=== PATIENT | female | born 1940 | race Hispanic/Latino ===

== ENCOUNTER 2016-07-25 17:28 | Inpatient (IN) | payer MEDICARE ==
[2016-07-25 17:28] VITALS: BMI 37.5
--- NOTE | 2016-07-25 18:48 | CT ---
EXAM: CT Right Lower Extremity Without Intravenous Contrast, Knee CLINICAL HISTORY: 76 years old, female; Pain; Knee; Right; Additional info: FX knee TECHNIQUE: Axial computed tomography images of the right knee without intravenous contrast. This CT exam was performed using one or more of the following dose reduction techniques: automated exposure control, adjustment of the mA and/or kV according to patient size, and/or use of iterative reconstruction technique. Coronal and sagittal reformatted images were created and reviewed. EXAM DATE/TIME: 07/25/2016 5:56 PM COMPARISON: There are no prior studies for comparison. FINDINGS: Bones/joints: Bony structures are diffusely osteopenic. There is a minimally comminuted oblique fracture through the medial condyle of the right femur. There is impaction at the fracture site. There is posterior and medial displacement of the distal fracture fragment.. Fracture line extends obliquely to the posterior aspect of the lateral condyle. There is no patellar fracture. Proximal tibia and fibula are intact. There are degenerative changes with narrowing of the medial and lateral joint compartments. There are degenerative osteophytes. Soft tissues: There is soft tissue swelling and bruising at the right knee. There is an effusion in the knee joint with a fat fluid level. IMPRESSION: Distal right femoral fracture as described lipohemarthrosis; osteopenia degenerative change
[2016-07-25 18:54] LABS: BASO # 0.1 K/uL (0.0-0.2); BASO % 0.9 % (0.0-2.0); EOS # 0.1 K/uL (0.0-0.7); HEMATOCRIT 34.1 % (34.0-47.0); LYMPH # 1.5 K/uL (1.0-4.3); LYMPH % 16.1 % (20.0-40.0); MEAN CELL VOLUME 100.8 fL (81.0-99.0); MEAN CORPUSCULAR HEMOGLOBIN 32.8 pg (27.0-31.0); MEAN CORPUSCULAR HGB CONC 32.6 g/dL (33.0-37.0); MEAN PLATELET VOLUME 8.8 fL (7.2-11.7); MONO # 0.6 K/uL (0.0-0.8); MONO % 6.6 % (0.0-10.0); NRBC % 0.2 % (0.0-2.0); RED CELL DISTRIBUTION WIDTH 13.1 % (11.5-14.5)
[2016-07-25 19:01] LABS: INR 1.1
[2016-07-25 19:04] LABS: RBC URINE 2 /hpf (0-3); URINE BILIRUBIN NEGATIVE (NEGATIVE); URINE BLOOD NEGATIVE (NEGATIVE); URINE COLOR Yellow (YELLOW); URINE GLUCOSE (UA) NORMAL (Normal); URINE KETONE TRACE mg/dL (NEGATIVE); URINE LEUKOCYTE ESTERASE NEG Leu/uL (Negative); URINE PROTEIN NEGATIVE (NEGATIVE); URINE UROBILINOGEN NORMAL mg/dL (0.2-1.0); WBC URINE 1 /hpf (0-5)
[2016-07-25 19:07] LABS: CHLORIDE 96 mmol/L (98-107); SODIUM 138 mmol/L (132-148)
[2016-07-25 19:08] LABS: POTASSIUM 4.1 mmol/L (3.6-5.2)
[2016-07-25 19:10] LABS: ALKALINE PHOSPHATASE 75 U/L (38-126); AST/SGOT 25 U/L (14-36); BILIRUBIN,TOTAL 1.1 mg/dL (0.2-1.3); BLOOD UREA NITROGEN 14 mg/dL (7-17); CARBON DIOXIDE 30 mmol/L (22-30); GFR AFRICAN-AMERICAN > 60; TOTAL PROTEIN 6.8 g/dL (6.3-8.3)
[2016-07-25 19:11] LABS: ALT/SGPT 25 U/L (9-52); CALCIUM 8.3 mg/dl (8.6-10.4); GLUCOSE,RANDOM 119 mg/dL (65-105)
--- NOTE | 2016-07-25 20:55 | CP.PCM.HP ---
<Manjeet Chowdary - Last Filed: 07/25/16 20:56> History of Present Illness - History of Present Illness History of Present Illness: A 76 year old female presents to the ER complaining that she fell and injured her face and left hand and right knee 5 days ago. Patient notes that today she gotten and X-Ray of her knee and found a supracondylar fracture of humerus and was transferred to the ER. Patient is non-ambulatory and denies fever, chills, nausea, vomiting, LOC, dizziness, or any other complaints. Meds Allergies/Adverse Reactions: Allergies Allergy/AdvReac Type Severity Reaction Status Date / Time No Known Allergies Allergy Verified 04/03/15 23:19 Results - Vital Signs Recent Vital Signs: Last Vital Signs Temp 98.4 F 07/25/16 17:37 Pulse 97 H 07/25/16 19:57 Resp 20 07/25/16 19:53 BP 146/68 07/25/16 19:53 Pulse Ox 97 07/25/16 19:53 - Labs Result Diagrams: 07/25/16 18:49 07/25/16 18:49 <Lani Chamberlain - Last Filed: 07/25/16 23:53> History of Present Illness - History of Present Illness History of Present Illness: CC: right knee pain HPI: 76 year old female with PMHx significant for Hypothyroidism presents s/p fall approximately one week ago while at [facility]. Patient states that she did not feel much discomfort until recently. At the time she injured her face, left arm and right knee. Patient states that she has not ambulated in nearly one year because she rides around in a wheelchair. She only recently noticed some pain associated with bending of the affected right knee. The pain is limited to that area. She denies chest pain, headaches, paresthesias, palpitations, nausea, vomiting, diarrhea, constipation, dyspnea or back pain at this time. PMHx- as states above PSHx- denies Fam Hx denies Social Hx- smoked 3 cigarettes a day for one year duration many years ago but has since quit; denies ever drinking alcohol; denies illicit drug use Allergies-denies PMD- Dr. Rios Present on Admission - Present on Admission Any Indicators Present on Admission: No Review of Systems - Constitutional Constitutional: absent: Anorexia, Chills, Daytime Sleepiness - EENT Eyes: absent: Blurred Vision, Change in Vision Nose/Mouth/Throat: Nasal Trauma. absent: Bleeding Gums - Cardiovascular Cardiovascular: absent: Chest Pain, Chest Pain at Rest, Dyspnea - Respiratory Respiratory: absent: Cough, Hemoptysis - Gastrointestinal Gastrointestinal: absent: Nausea, Vomiting - Genitourinary Genitourinary: absent: Change in Urinary Stream - Musculoskeletal Musculoskeletal: Arthralgias, Joint Swelling (right). absent: Abnormal Gait - Integumentary Integumentary: Unusual Bruising - Neurological Neurological: absent: Abnormal Hearing, Abnormal Movements - Psychiatric Psychiatric: absent: Anxiety, Change in Appetite - Hematologic/Lymphatic Hematologic: Easy Bruising Past Patient History - Past Medical History & Family History Past Medical History?: Yes - Past Social History Smoking Status: Former Smoker Alcohol: None Drugs: Denies Home Situation {Lives}: [facility] - CARDIAC Hx Cardiac Disorders: Yes Hx Hypertension: Yes - PULMONARY Hx Respiratory Disorders: No - NEUROLOGICAL Hx Neurological Disorder: Yes Hx Seizures: Yes (LAST ATTACK 18 YEARS AGO) - HEENT Hx HEENT Problems: No - RENAL Hx Chronic Kidney Disease: No - ENDOCRINE/METABOLIC Hx Endocrine Disorders: Yes Hx Hypothyroidism: Yes - HEMATOLOGICAL/ONCOLOGICAL Hx Blood Disorders: No - INTEGUMENTARY Hx Dermatological Problems: No - MUSCULOSKELETAL/RHEUMATOLOGICAL Hx Musculoskeletal Disorders: No - GASTROINTESTINAL Hx Gastrointestinal Disorders: No - GENITOURINARY/GYNECOLOGICAL Hx Genitourinary Disorders: No - PSYCHIATRIC Hx Psychophysiologic Disorder: No Hx Emotional Abuse: No Hx Physical Abuse: No Hx Substance Use: No - SURGICAL HISTORY Hx Surgeries: Yes Hx Joint Replacement: Yes (LEFT HIP) - ANESTHESIA Hx Anesthesia: Yes Hx Anesthesia Reactions: No Hx Malignant Hyperthermia: No Physical Exam - Constitutional Appears: No Acute Distress - Head Exam Head Exam: NORMOCEPHALIC. absent: ATRAUMATIC Additional comments: ecchymotic changes on face - purple to yellow discoloration noted indicative of improvement - Eye Exam Eye Exam: EOMI, Normal appearance, PERRL Pupil Exam: NORMAL ACCOMODATION - ENT Exam ENT Exam: Mucous Membranes Moist, Normal Exam - Neck Exam Neck exam: Positive for: Full Rom - Respiratory Exam Respiratory Exam: NORMAL BREATHING PATTERN. absent: Wheezes - Cardiovascular Exam Cardiovascular Exam: +S1, +S2 - GI/Abdominal Exam GI & Abdominal Exam: Normal Bowel Sounds, Soft - Extremities Exam Extremities exam: Positive for: joint swelling (right), normal capillary refill , pedal edema (trace), tenderness (right knee), pedal pulses present. Negative for: full ROM - Back Exam Back exam: FULL ROM - Neurological Exam Neurological exam: Alert, CN II-XII Intact, Oriented x3 - Psychiatric Exam Psychiatric exam: Normal Affect, Normal Mood - Skin Skin Exam: Dry, Intact, Warm Additional comments: purpura of the face, left arm, left dorsal surface of hand Results - Vital Signs Recent Vital Signs: Last Vital Signs Temp 98.4 F 07/25/16 17:37 Pulse 97 H 07/25/16 19:57 Resp 20 07/25/16 19:53 BP 146/68 07/25/16 19:53 Pulse Ox 97 07/25/16 19:53 - Labs Result Diagrams: 07/25/16 18:49 07/25/16 18:49 Assessment & Plan (1) Femoral distal fracture Assessment and Plan: Lower Extremity CT: distal right femoral fracture noted Ortho Consult to Dr. Jimenez. F/U recommendations Pt has not ambulated in nearly a year- Venous dopplers F/U Fall risk protocol Pt will likely benefit from PT/OT services after ortho evaluation Status: Acute (2) Traumatic ecchymosis of face Assessment and Plan: Pt denies tenderness or residual deficits on PE F/U Head CT Status: Acute (3) UTI (urinary tract infection) Assessment and Plan: Pt previously beign treated for a UTI before admission as noted in care home records on Augmentin 875-125 mg I Q12 for 7 days. Started 07/23. Should end 07/31/16 UA WNL. F/U UC. Nonetheless will still continue treatment course Status: Acute (4) Hypothyroidism Assessment and Plan: Synthroid 88 mcg in the AM F/U Thyroid studies Status: Acute (5) Prophylactic measure Assessment and Plan: Lovenox SC daily GI prophylaxis not indicated at this time SCDs contraindicated due to injury Status: Acute
--- NOTE | 2016-07-25 21:03 | C.PDOC ---
History Of Present Illness A 76 year old female presents to the ER complaining that she fell and injured her face, left hand, and right knee 5 days ago. Patient notes that today she received a X-Ray of her right knee and found a supracondylar fracture of humerus and was transferred to the ER. Patient is non-ambulatory and denies fever, chills, nausea, vomiting, LOC, dizziness, or any other complaints. - HPI Time Seen by Provider: 07/25/16 17:45 Chief Complaint (Nursing): Lower Extremity Problem/Injury History Per: Patient History/Exam Limitations: no limitations Onset/Duration Of Symptoms: Days Injury Occurred (Timing): Days Ago: (5) Location Of Injury: Right: Knee, Left: Hand, Anterior: Face Severity: Mild Recent travel outside of the [place]: No Additional History Per: Patient Past Medical History Reviewed: Historical Data, Nursing Documentation, Vital Signs Vital Signs: Last Vital Signs Temp 98.2 F 07/25/16 21:21 Pulse 91 H 07/25/16 21:21 Resp 18 07/25/16 21:21 BP 139/54 L 07/25/16 21:21 Pulse Ox 96 07/25/16 21:21 - Medical History PMH: Anemia, HTN, Hypothyroidism, Peripheral Edema, Seizures (LAST ATTACK 18 YEARS AGO) Denies: HIV, Chronic Kidney Disease - [facility] Procedures CLOSED RED-INT FIX FEMUR (12/07/12) EXTRACTION OF ILIAC BONE MARROW, PERC APPROACH, DIAGN (04/04/15) INTRODUCTION OF SERUM/TOX/VACCINE INTO MUSCLE, PERC APPROACH (02/07/15) OCCUPATIONAL THERAPY (12/14/12) PACKED CELL TRANSFUSION (12/07/12) PHYSICAL THERAPY NEC (06/15/13) RECREATIONAL THERAPY (12/14/12) TRANSFUSE NONAUT RED BLOOD CELLS IN PERIPH VEIN, PERC (04/04/15) Family History: States: Unknown Family Hx - Social History Hx Alcohol Use: No Hx Substance Use: No Review Of Systems Except As Marked, All Systems Reviewed And Found Negative. Constitutional: Negative for: Fever, Chills Gastrointestinal: Negative for: Nausea, Vomiting Musculoskeletal: Positive for: Hand Pain (Left), Leg Pain (Right knee), Other ( Face injury) Neurological: Negative for: Dizziness, Other (LOC) Physical Exam - Physical Exam Appears: Non-toxic, No Acute Distress Skin: Warm, Dry, Ecchymosis (Old eccymodic area entire face and left forearm) Head: Atraumatic, Normacephalic Eye(s): bilateral: Normal Inspection Cardiovascular: Rhythm Regular, No Murmur Respiratory: Normal Breath Sounds, No Rales, No Rhonchi, No Wheezing Extremity: No Normal ROM (Decrease ROM), Tenderness, Swelling (Right lower extremity and knee ) Neurological/Psych: Oriented x3, Normal Speech, Normal Cognition, Other (A&A) ED Course And Treatment - Laboratory Results Result Diagrams: 07/25/16 18:49 07/25/16 18:49 ECG: Interpreted By Me, Viewed By Me ECG Rhythm: Sinus Rhythm (97) ECG Interpretation: Normal, No Acute Changes Interpretation Of ECG: Old inferior [place] O2 Sat by Pulse Oximetry: 97 (RA) Pulse Ox Interpretation: Normal - CT Scan/US LE CT/US Interpretation: FINDINGS: Bones/joints: Bony structures are diffusely osteopenic. There is a. minimally comminuted oblique fracture through the medial condyle of the right. femur. There is impaction at the fracture site. There is posterior and medial. displacement of the distal fracture fragment.. Fracture line extends obliquely. to the posterior aspect of the lateral condyle. There is no patellar fracture. Proximal tibia and fibula are intact. There are degenerative changes with. narrowing of the medial and lateral joint compartments. There are degenerative. osteophytes. Soft tissues: There is soft tissue swelling and bruising at the right knee. There is an effusion in the knee joint with a fat fluid level. . IMPRESSION: Distal right femoral fracture as described lipohemarthrosis;. osteopenia degenerative change. . Dictated By: Collette Rao MD Medical Decision Making Medical Decision Making: Plans: -EKG -Blood labs -Reassess and disposition Discussed with dr Rios Plan admit consult dr Mohan, case also discussed with him. Disposition - Disposition Disposition: HOSPITALIZED Disposition Time: 19:40 Condition: GOOD - Clinical Impression Clinical Impression: Supercondilar Fx Fall - Scribe Statement The provider has reviewed the documentation as recorded by the Scribe Silvia gayle All medical record entries made by the Scribe were at my direction and personally dictated by me. I have reviewed the chart and agree that the record accurately reflects my personal performance of the history, physical exam, medical decision making, and the department course for this patient. I have also personally directed, reviewed, and agree with the discharge instructions and disposition.
[2016-07-26] MEDS: Amoxicillin-Clav 875-125 mg Tab PO SCH ×3 (00:34→21:28)
[2016-07-26] MEDS: Levothyroxine 88 MCG TAB PO SCH (05:39)
[2016-07-26 08:42] LABS: BASO # 0.1 K/uL (0.0-0.2); BASO % 0.7 % (0.0-2.0); EOS # 0.3 K/uL (0.0-0.7); EOS % 3.8 % (0.0-4.0); HEMATOCRIT 32.2 % (34.0-47.0); LYMPH # 1.3 K/uL (1.0-4.3); MEAN CELL VOLUME 100.8 fL (81.0-99.0); MEAN CORPUSCULAR HEMOGLOBIN 32.8 pg (27.0-31.0); MEAN CORPUSCULAR HGB CONC 32.5 g/dL (33.0-37.0); MEAN PLATELET VOLUME 8.9 fL (7.2-11.7); MONO # 0.6 K/uL (0.0-0.8); MONO % 8.2 % (0.0-10.0); WHITE BLOOD COUNT 7.8 K/uL (4.8-10.8)
[2016-07-26 08:43] LABS: INR 1.1
[2016-07-26 08:49] LABS: CHLORIDE 96 mmol/L (98-107); POTASSIUM 3.8 mmol/L (3.6-5.2); SODIUM 134 mmol/L (132-148)
[2016-07-26 08:51] LABS: BILIRUBIN,TOTAL 0.8 mg/dL (0.2-1.3); CARBON DIOXIDE 32 mmol/L (22-30); GFR AFRICAN-AMERICAN > 60
[2016-07-26 08:52] LABS: ALB/GLOB RATIO 0.9 (1.0-2.1); ALKALINE PHOSPHATASE 69 U/L (38-126); ALT/SGPT 29 U/L (9-52); AST/SGOT 24 U/L (14-36); BLOOD UREA NITROGEN 13 mg/dL (7-17); CALCIUM 8.2 mg/dl (8.6-10.4); GLUCOSE,RANDOM 102 mg/dL (65-105); MAGNESIUM 2.1 mg/dL (1.6-2.3); PHOSPHOROUS 3.7 mg/dL (2.5-4.5); TOTAL PROTEIN 6.1 g/dL (6.3-8.3)
[2016-07-26 09:29] LABS: THYROID STIMULATING HORMONE 1.49 mIU/L (0.46-4.68)
--- NOTE | 2016-07-26 10:01 | CT ---
PROCEDURE: CT HEAD WITHOUT CONTRAST. HISTORY: s/p fall 1 week ago COMPARISON: None available. TECHNIQUE: Axial computed tomography images were obtained through the head/brain without intravenous contrast. Radiation dose: Total exam DLP = 946.7 mGy-cm. This CT exam was performed using one or more of the following dose reduction techniques: Automated exposure control, adjustment of the mA and/or kV according to patient size, and/or use of iterative reconstruction technique. FINDINGS: HEMORRHAGE: No intracranial hemorrhage. BRAIN: No mass effect or edema. Cortical atrophy, periventricular small vessel disease. Cerebellar atrophy noted. No brainstem abnormalities apparent. VENTRICLES: Unremarkable. No hydrocephalus. CALVARIUM: Unremarkable. PARANASAL SINUSES: Unremarkable as visualized. No significant inflammatory changes. MASTOID AIR CELLS: Unremarkable as visualized. No inflammatory changes. OTHER FINDINGS: None. IMPRESSION: No acute intracranial abnormalities. No significant findings to account for the clinical presentation.
--- NOTE | 2016-07-26 10:32 | CP.PCM.PN ---
Subjective - Date & Time of Evaluation Date of Evaluation: 07/26/16 Time of Evaluation: 07:10 - Subjective Subjective: Pt. complains of back pain and cough. no other complaints, she is bed bound, no other complaints Objective - Vital Signs/Intake and Output Vital Signs (last 24 hours): Temp Pulse Resp BP Pulse Ox 98 F 83 20 111/68 99 07/26/16 07:00 07/26/16 07:00 07/26/16 07:00 07/25/16 23:30 07/26/16 07:00 - Medications Medications: Current Medications Amoxicillin/Clavulanate Potassium (Augmentin 875 Mg-125 Mg Tab) 1 tab PO Q12 [facility] Last Admin: 07/26/16 00:34 Dose: 1 tab Enoxaparin Sodium (Lovenox) 40 mg SC DAILY [facility] Levothyroxine Sodium (Synthroid) 88 mcg PO DAILY@0630 [facility] Last Admin: 07/26/16 05:39 Dose: 88 mcg - Labs Labs: 07/26/16 08:27 07/26/16 08:27 PT 12.1 SECONDS (9.7-12.2) 07/26/16 08:27 INR 1.1 07/26/16 08:27 APTT 26 SECONDS (21-34) 07/26/16 08:27 - Constitutional Appears: Non-toxic, No Acute Distress - Head Exam Head Exam: absent: ATRAUMATIC
[2016-07-26] MEDS: Enoxaparin 40 mg Syringe SC SCH (12:01)
--- NOTE | 2016-07-26 19:58 | CP.PCM.PN ---
Subjective - Date & Time of Evaluation Date of Evaluation: 07/26/16 Time of Evaluation: 07:10 - Subjective Subjective: A 76 year old female presented to the ER complaining that she fell out of bed and injured her face and right knee 5 days ago. Patient is non-ambulatory. CT Head was negative for acute abnormalities and CT leg showed distal right femoral fracture. Today she complains of back pain and describes the pain as a muscle spasm that comes/goes. She denies fever, chills, chest pain, difficulty breathing ,nausea, vomiting, diarrhea, or abdominal pain. Objective - Vital Signs/Intake and Output Vital Signs (last 24 hours): Temp Pulse Resp BP Pulse Ox 97.9 F 66 20 166/66 H 96 07/26/16 17:55 07/26/16 17:55 07/26/16 17:55 07/26/16 17:55 07/26/16 17:55 - Medications Medications: Current Medications Amoxicillin/Clavulanate Potassium (Augmentin 875 Mg-125 Mg Tab) 1 tab PO Q12 [facility] Last Admin: 07/26/16 10:43 Dose: 1 tab Enoxaparin Sodium (Lovenox) 40 mg SC DAILY [facility] Last Admin: 07/26/16 12:01 Dose: 40 mg Ketorolac Tromethamine (Toradol) 30 mg IVP Q6 PRN PRN Reason: Pain, severe (8-10) Last Admin: 07/26/16 17:31 Dose: 30 mg Levothyroxine Sodium (Synthroid) 88 mcg PO DAILY@0630 [facility] Last Admin: 07/26/16 05:39 Dose: 88 mcg - Labs Labs: 07/26/16 08:27 07/26/16 08:27 PT 12.1 SECONDS (9.7-12.2) 07/26/16 08:27 INR 1.1 07/26/16 08:27 APTT 26 SECONDS (21-34) 07/26/16 08:27 - Constitutional Appears: No Acute Distress - Head Exam Head Exam: NORMOCEPHALIC. absent: ATRAUMATIC Additional comments: brusing on face bl from fall. - Eye Exam Eye Exam: EOMI - ENT Exam ENT Exam: Mucous Membranes Moist - Respiratory Exam Respiratory Exam: Clear to Ausculation Bilateral, NORMAL BREATHING PATTERN - Cardiovascular Exam Cardiovascular Exam: REGULAR RHYTHM, RRR, +S1, +S2 - GI/Abdominal Exam GI & Abdominal Exam: Soft, Normal Bowel Sounds. absent: Tenderness - Extremities Exam Extremities Exam: Joint Swelling, Pedal Edema. absent: Full ROM - Back Exam Back Exam: CVA tenderness (R) - Neurological Exam Neurological Exam: Alert, Awake, Oriented x3 - Psychiatric Exam Psychiatric exam: Normal Affect, Normal Mood - Skin Skin Exam: Dry, Intact, Normal Color, Warm Assessment and Plan - Assessment and Plan (Free Text) Plan: Assessment & Plan (1) Femoral distal fracture Assessment and Plan: Lower Extremity CT: distal right femoral fracture noted Ortho Consult to Dr. Jimenez. F/U recommendations Pt has not ambulated in nearly a year- Venous dopplers F/U Fall risk protocol Pt will likely benefit from PT/OT services after ortho evaluation Toradol IV q6 prn for pain (2) Traumatic ecchymosis of face Assessment and Plan: Pt denies tenderness or residual deficits on PE Head CT - please see full report -negative for acute intracranial abnormalities (3) UTI (urinary tract infection) Assessment and Plan: Pt previously beign treated for a UTI before admission as [facility] in [facility] on Augmentin 875-125 mg I Q12 for 7 days. Started 07/23. Should end 07/31/16 UA WNL. Nonetheless will still continue treatment course F/U UC (4) Hypothyroidism Assessment and Plan: Synthroid 88 mcg in the AM Thyroid studies -WNL (5) Prophylactic measure Assessment and Plan: Lovenox SC daily GI prophylaxis not indicated at this time SCDs contraindicated due to injury
[2016-07-27] MEDS: Levothyroxine 88 MCG TAB PO SCH (06:03)
--- NOTE | 2016-07-27 07:39 | CP.PCM.PN ---
Objective - Vital Signs/Intake and Output Vital Signs (last 24 hours): Temp Pulse Resp BP Pulse Ox 98.1 F 82 20 112/58 L 96 07/26/16 23:45 07/26/16 23:45 07/26/16 23:45 07/26/16 23:45 07/26/16 23:45 Intake and Output: 07/27/16 07/27/16 06:59 18:59 Intake Total 500 Balance 500 - Medications Medications: Current Medications Amoxicillin/Clavulanate Potassium (Augmentin 875 Mg-125 Mg Tab) 1 tab PO Q12 [facility] Last Admin: 07/26/16 21:28 Dose: 1 tab Enoxaparin Sodium (Lovenox) 40 mg SC DAILY [facility] Last Admin: 07/26/16 12:01 Dose: 40 mg Ketorolac Tromethamine (Toradol) 30 mg IVP Q6 PRN PRN Reason: Pain, severe (8-10) Last Admin: 07/26/16 17:31 Dose: 30 mg Levothyroxine Sodium (Synthroid) 88 mcg PO DAILY@0630 [facility] Last Admin: 07/27/16 06:03 Dose: 88 mcg - Labs Labs: 07/26/16 08:27 07/26/16 08:27 PT 12.1 SECONDS (9.7-12.2) 07/26/16 08:27 INR 1.1 07/26/16 08:27 APTT 26 SECONDS (21-34) 07/26/16 08:27
[2016-07-27 08:18] LABS: BASO % 0.6 % (0.0-2.0); EOS # 0.3 K/uL (0.0-0.7); EOS % 5.1 % (0.0-4.0); LYMPH # 1.1 K/uL (1.0-4.3); LYMPH % 16.7 % (20.0-40.0); MEAN CORPUSCULAR HEMOGLOBIN 33.2 pg (27.0-31.0); MEAN CORPUSCULAR HGB CONC 33.2 g/dL (33.0-37.0); MEAN PLATELET VOLUME 8.7 fL (7.2-11.7); MONO # 0.5 K/uL (0.0-0.8); MONO % 7.6 % (0.0-10.0); NRBC % 0.1 % (0.0-2.0); RED CELL DISTRIBUTION WIDTH 13.1 % (11.5-14.5); WHITE BLOOD COUNT 6.6 K/uL (4.8-10.8)
[2016-07-27 08:54] LABS: CHLORIDE 96 mmol/L (98-107); POTASSIUM 3.9 mmol/L (3.6-5.2); SODIUM 135 mmol/L (132-148)
[2016-07-27 08:57] LABS: ALB/GLOB RATIO 1.1 (1.0-2.1); ALKALINE PHOSPHATASE 65 U/L (38-126); ALT/SGPT 22 U/L (9-52); AST/SGOT 18 U/L (14-36); BILIRUBIN,TOTAL 1.1 mg/dL (0.2-1.3); BLOOD UREA NITROGEN 11 mg/dL (7-17); CALCIUM 7.4 mg/dl (8.6-10.4); CARBON DIOXIDE 30 mmol/L (22-30); GFR AFRICAN-AMERICAN > 60; GLUCOSE,RANDOM 88 mg/dL (65-105)
--- NOTE | 2016-07-27 09:48 | CP.PCM.PN ---
Subjective - Date & Time of Evaluation Date of Evaluation: 07/27/16 Time of Evaluation: 09:00 - Subjective Subjective: Patient seen and examined with Dr. Jimenez. Full consult dictated. Objective - Vital Signs/Intake and Output Vital Signs (last 24 hours): Temp Pulse Resp BP Pulse Ox 97.8 F 73 18 105/59 L 98 07/27/16 07:25 07/27/16 07:25 07/27/16 07:25 07/27/16 07:25 07/27/16 07:25 Intake and Output: 07/27/16 07/27/16 06:59 18:59 Intake Total 500 Balance 500 - Medications Medications: Current Medications Amoxicillin/Clavulanate Potassium (Augmentin 875 Mg-125 Mg Tab) 1 tab PO Q12 [facility] Last Admin: 07/26/16 21:28 Dose: 1 tab Enoxaparin Sodium (Lovenox) 40 mg SC DAILY [facility] Last Admin: 07/26/16 12:01 Dose: 40 mg Ketorolac Tromethamine (Toradol) 30 mg IVP Q6 PRN PRN Reason: Pain, severe (8-10) Last Admin: 07/26/16 17:31 Dose: 30 mg Levothyroxine Sodium (Synthroid) 88 mcg PO DAILY@0630 [facility] Last Admin: 07/27/16 06:03 Dose: 88 mcg - Labs Labs: 07/27/16 08:07 07/27/16 08:07 PT 12.1 SECONDS (9.7-12.2) 07/26/16 08:27 INR 1.1 07/26/16 08:27 APTT 26 SECONDS (21-34) 07/26/16 08:27 Assessment and Plan (1) Closed fracture of medial condyle of right femur Assessment & Plan: non operative corazon/knee immobilizer ice elevation plain xrays ordered VTE proph patient non ambulatory patient seen and examined by Dr. Jimenez, agrees with above, full consult dictated Status: Acute
[2016-07-27] MEDS: Amoxicillin-Clav 875-125 mg Tab PO SCH (10:13)
[2016-07-27] MEDS: Enoxaparin 40 mg Syringe SC SCH (10:13)
--- NOTE | 2016-07-27 10:36 | CON ---
DATE: 07/27/2016 REASON FOR CONSULTATION: Right distal femur fracture. This is a 76-year-old female who approximately 1 week ago had a mechanical fall, injuring, and began having right knee pain and swelling. The patient by history is nonambulatory. She states that she h as not walked in over a year and is wheelchair bound. Today, she denies any other injuries. She den ies any significant pain at this time. PHYSICAL EXAMINATION: EXTREMITIES: She has an extensive amount of swelling about the right knee. Her skin is intact. Shreya ssly, she is neurologically intact. She does have pain on palpation over the distal femur and pain w ith any passive range of motion of her knee. No gross instability is appreciated. Her thigh is soft and nontender. Her calf is also soft and nontender. CAT scan of the right knee shows a distal femur, medial femoral condyle fracture with some displaceme nt which is appreciated on the sagittal and coronal planes. No dislocation is appreciated. IMPRESSION: Right distal femur fracture. PLAN: At this point, given patient's nonambulatory status, surgery is not recommended at this time. She agrees. The patient does not want any surgery. For now, I recommended that we treat her with a knee immobilizer, nonweightbearing on the right lower extremity and serial x-rays to watch for displ acement. Should the fracture displace further, then possible surgery may be warranted. Also recomme nd deep venous thrombosis prophylaxis. Harsha Jimenez MD cc: [id number] TT: 07/27/2016 10:35:49 Confirmation # [id number] Dictation # [id number]
--- NOTE | 2016-07-27 11:53 | CP.PCM.DIS ---
Provider - Provider Date of Admission: 07/25/16 19:41 Attending physician: Gee Rios Jr, MD Primary care physician: Dr. Rios Consults: Ortho Dr. Jimenez Time Spent in preparation of Discharge (in minutes): 45 Hospital Course - Lab Results Lab Results: Most Recent Lab Values WBC 6.6 K/uL (4.8-10.8) 07/27/16 08:07 RBC 3.20 Mil/uL (3.80-5.20) L 07/27/16 08:07 Hgb 10.6 g/dL (11.0-16.0) L 07/27/16 08:07 Hct 32.0 % (34.0-47.0) L 07/27/16 08:07 MCV 100.0 fL (81.0-99.0) H 07/27/16 08:07 MCH 33.2 pg (27.0-31.0) H 07/27/16 08:07 MCHC 33.2 g/dL (33.0-37.0) 07/27/16 08:07 RDW 13.1 % (11.5-14.5) 07/27/16 08:07 Plt Count 233 K/uL (130-400) 07/27/16 08:07 MPV 8.7 fL (7.2-11.7) 07/27/16 08:07 Neut % (Auto) 70.0 % (50.0-75.0) 07/27/16 08:07 Lymph % (Auto) 16.7 % (20.0-40.0) L 07/27/16 08:07 [place] % (Auto) 7.6 % (0.0-10.0) 07/27/16 08:07 Eos % (Auto) 5.1 % (0.0-4.0) H 07/27/16 08:07 Baso % (Auto) 0.6 % (0.0-2.0) 07/27/16 08:07 Neut # 4.7 K/uL (1.8-7.0) 07/27/16 08:07 Lymph # 1.1 K/uL (1.0-4.3) 07/27/16 08:07 [place] # 0.5 K/uL (0.0-0.8) 07/27/16 08:07 Eos # 0.3 K/uL (0.0-0.7) 07/27/16 08:07 Baso # 0.0 K/uL (0.0-0.2) 07/27/16 08:07 PT 12.1 SECONDS (9.7-12.2) 07/26/16 08:27 INR 1.1 07/26/16 08:27 APTT 26 SECONDS (21-34) 07/26/16 08:27 Sodium 135 mmol/L (132-148) 07/27/16 08:07 Potassium 3.9 mmol/L (3.6-5.2) 07/27/16 08:07 Chloride 96 mmol/L (98-107) L 07/27/16 08:07 Carbon Dioxide 30 mmol/L (22-30) 07/27/16 08:07 Anion Gap 13 (10-20) 07/27/16 08:07 BUN 11 mg/dL (7-17) 07/27/16 08:07 Creatinine 0.6 MG/DL (0.7-1.2) L 07/27/16 08:07 Est GFR ( Amer) > 60 07/27/16 08:07 Est GFR (Non-Af Amer) > 60 07/27/16 08:07 Random Glucose 88 mg/dL (65-105) 07/27/16 08:07 Calcium 7.4 mg/dl (8.6-10.4) L 07/27/16 08:07 Phosphorus 3.7 mg/dL (2.5-4.5) 07/26/16 08:27 Magnesium 2.1 mg/dL (1.6-2.3) 07/26/16 08:27 Total Bilirubin 1.1 mg/dL (0.2-1.3) 07/27/16 08:07 AST 18 U/L (14-36) 07/27/16 08:07 ALT 22 U/L (9-52) 07/27/16 08:07 Alkaline Phosphatase 65 U/L (38-126) 07/27/16 08:07 Total Protein 6.0 g/dL (6.3-8.3) L 07/27/16 08:07 Albumin 3.1 g/dL (3.5-5.0) L 07/27/16 08:07 Globulin 2.9 gm/dL (2.2-3.9) 07/27/16 08:07 Albumin/Globulin Ratio 1.1 (1.0-2.1) 07/27/16 08:07 Free T4 1.57 ng/dL (0.78-2.19) 07/26/16 08:27 TSH 3rd Generation 1.49 mIU/L (0.46-4.68) 07/26/16 08:27 Urine Color Yellow (YELLOW) 07/25/16 18:59 Urine Clarity Clear (Clear) 07/25/16 18:59 Urine pH 5.0 (5.0-8.0) 07/25/16 18:59 Ur Specific [place] 1.024 (1.003-1.030) 07/25/16 18:59 Urine Protein Negative mg/dL (NEGATIVE) 07/25/16 18:59 Urine Glucose (UA) Normal mg/dL (Normal) 07/25/16 18:59 Urine Ketones Trace mg/dL (NEGATIVE) 07/25/16 18:59 Urine Blood Negative (NEGATIVE) 07/25/16 18:59 Urine Nitrate Negative (NEGATIVE) 07/25/16 18:59 Urine Bilirubin Negative (NEGATIVE) 07/25/16 18:59 Urine Urobilinogen Normal mg/dL (0.2-1.0) 07/25/16 18:59 Ur Leukocyte Esterase Neg [place]/uL (Negative) 07/25/16 18:59 Urine WBC (Auto) 1 /hpf (0-5) 07/25/16 18:59 Urine RBC (Auto) 2 /hpf (0-3) 07/25/16 18:59 - Hospital Course Hospital Course: Upon admission: 76 year old female with PMHx significant for Hypothyroidism presents s/p fall approximately one week ago while at [facility]. Patient stated that she did not feel much discomfort until days before her admission. Patient reported she has not ambulated in a year and uses a wheelchair. She admitted to some pain when bending her right knee but denied chest pain, headaches, paresthesias, palpitations, nausea, vomiting, diarrhea, constipation, dyspnea or back pain on day of admission. Patient was admitted to the floors and Dr. Tony priest was consulted. Lower Extremity CT showed a distal right femoral fracture. Head CT was negative. As patient was being treated for a UTI prior to admission, her antibiotics were continued and she was restarted on her home medications. As per ortho, patient was not an operative candidate and had an corazon/knee immobilzer in placed. On day of discharge, patient was deemed medically stable for discharge. Upon discharge: Patient stable for discharge to [facility] as per Dr. Rios. Patient to resume all home medications. Patient to start new medication as prescribed: Xarelto 15mg PO daily Disp#30 Patient has a knee immobilizer in place. She is to ice and elevate her leg. Patient to follow up with PMD within 7 days. If symptoms persist or worsen patient to visit ED immediately. Instructions discussed in detail with patient who understands and agrees. Please note this is a discharge summary. For full hospital course please refer to medical records. Discharge Exam - Head Exam Head Exam: NORMOCEPHALIC. absent: ATRAUMATIC Additional comments: diffuse ecchymosis b/l on face - Eye Exam Eye Exam: EOMI, Normal appearance, PERRL. absent: Conjunctival injection Pupil Exam: NORMAL ACCOMODATION - ENT Exam ENT Exam: Mucous Membranes Moist - Neck Exam Neck exam: Normal Inspection - Respiratory Exam Respiratory Exam: Clear to PA & Lateral, NORMAL BREATHING PATTERN. absent: Accessory Muscle Use, Rales, Rhonchi, Wheezes, Respiratory Distress - Cardiovascular Exam Cardiovascular Exam: REGULAR RHYTHM, RRR, +S1, +S2 - GI/Abdominal Exam GI & Abdominal Exam: Normal Bowel Sounds, Soft. absent: Firm, Guarding, Tenderness - Extremities Exam Extremities exam: joint swelling, pedal edema Additional comments: RLE in immobilzier brace - Back Exam Back exam: CVA tenderness (R) - Neurological Exam Neurological exam: Alert, Oriented x3 - Psychiatric Exam Psychiatric exam: Normal Affect, Normal Mood - Skin Skin Exam: Dry, Intact, Normal Color, Warm Discharge Plan - Discharge Medications Prescriptions: Rivaroxaban [Xarelto] 15 mg PO DAILY #30 tab - Follow Up Plan Condition: FAIR Disposition: REHAB FACILITY/REHAB UNIT Instructions: Leg Fracture (DC), Heart Healthy Diet (DC), Fall Prevention for Older Adults (GEN), Fall Prevention (DC), Knee Immobilizer (DC) Additional Instructions: Patient stable for discharge to [facility] as per Dr. Rios. Patient to resume all home medications. Patient to start new medication as prescribed: Xarelto 15mg PO daily Disp#30 Patient has a knee immobilizer in place. She is to ice and elevate her leg. Patient to follow up with PMD within 7 days. If symptoms persist or worsen patient to visit ED immediately. Instructions discussed in detail with patient who understands and agrees. Referrals: Harsha Jimenez MD [Staff Provider] - Gee Rios Jr., MD [Medical Doctor] -
[2016-07-27 15:32] VITALS: BP 123/80; PULSE 93; RESP 20; TEMP 98.9; O2SAT 95
--- NOTE | 2016-07-28 07:42 | CARD ---
APPROVED REPORT EKG Measurement Heart [id number] <Conclusion> Normal sinus rhythm with sinus arrhythmia Low voltage QRS Inferior infarct, age undetermined Abnormal ECG
== END 2016-07-27 16:10 | DRG 534 ==
LOC: C.ER 17:28 → C.9E 19:41 → C.6T 20:55
PROVIDERS: ADMIT Internal Medicine; ATTEND Internal Medicine
DX: S72.431A Displaced fracture of medial condyle of right femur, initial encounter for closed fracture (principal); N39.0 Urinary tract infection, site not specified; I10 Essential (primary) hypertension; W06.XXXA Fall from bed, initial encounter; E03.9 Hypothyroidism, unspecified; S00.83XA Contusion of other part of head, initial encounter; Z87.891 Personal history of nicotine dependence; Z91.81 History of falling; Z96.642 Presence of left artificial hip joint